=== PATIENT | female | born 1970 | race Asian ===

== ENCOUNTER 2022-05-21 08:11 | Day surgery (SDC) | payer OTHER ==
[~2022-05-21] VITALS: Ht 152.4 cm; Wt 53.5 kg
[2022-05-21] MEDS ORDERED: diphenhydrAMINE 50 MG/ML VIAL ONE (09:08)
[2022-05-21] MEDS ORDERED: MIDAZOLAM 2 MG/2 ML VIAL ONE (09:08)
[2022-05-21] MEDS ORDERED: LIDOCAINE 2% 100 MG/5 ML UJET TP ONE (09:08)
[2022-05-21] MEDS ORDERED: fentaNYL citrate 0.05 MG/ML VIAL ONE (09:08)
[2022-05-21] MEDS ORDERED: MIDAZOLAM 2 MG/2 ML VIAL IVP ONE (10:20)
[2022-05-21] MEDS ORDERED: fentaNYL citrate 0.05 MG/ML VIAL IVP ONE (10:20)
== END 2022-05-21 11:08 | disposition home or self-care (01) ==
LOC: MDS 08:11 → MMU 08:11 → MDS 11:08
PROVIDERS: ATTEND Internal Medicine Gastroenterology
DX: Z12.11 Encounter for screening for malignant neoplasm of colon (principal); K63.89 Other specified diseases of intestine; E78.00 Pure hypercholesterolemia, unspecified; Z79.899 Other long term (current) drug therapy; Z20.822 Contact with and (suspected) exposure to COVID-19
CPT/HCPCS: 45380; 87426; J2250; J3010; J1200